=== PATIENT | male | born 1945 | race Caucasian/White ===

== ENCOUNTER 2020-11-23 16:10 | Inpatient (IN) | payer OTHER ==
[~2020-11-23] VITALS: Ht 172.7 cm; Wt 83.9 kg
[2020-11-23 16:10] VITALS: BP 128/78
--- NOTE | 2020-11-23 18:25 | Diagnostic Imaging Report ---
EXAM: CT Head Without Intravenous Contrast CLINICAL HISTORY: TRAUMA TECHNIQUE: Axial computed tomography images of the head/brain without intravenous contrast. CTDI is 53 mGy and DLP is 1045 mGy-cm. One or more of the following dose reduction techniques were used: automated exposure control, adjustment of the mA and/or kV according to patient size, use of iterative reconstruction technique. COMPARISON: No relevant prior studies available. FINDINGS: Brain: Unremarkable. No hemorrhage. No significant white matter disease. No edema. Ventricles: Unremarkable. No ventriculomegaly. Bones/joints: Unremarkable. No acute fracture. Soft tissues: Unremarkable. Sinuses: Unremarkable as visualized. No acute sinusitis. Mastoid air cells: Unremarkable as visualized. No mastoid effusion. IMPRESSION: No acute intracranial abnormality.
--- NOTE | 2020-11-23 18:26 | Diagnostic Imaging Report ---
EXAM: XR Right Ankle Complete, 3 or More Views CLINICAL HISTORY: TRAUMA TECHNIQUE: Frontal, lateral and oblique views of the right ankle. COMPARISON: No relevant prior studies available. FINDINGS: Bones/joints: Medial malleolar mildly displaced fracture. Intact ankle mortise. Plantar calcaneal enthesophyte. Osteopenia. No dislocation. Soft tissues: Substantial surrounding ankle edema. Other findings: Probable pes planus, although these images are not weightbearing. IMPRESSION: 1. Medial malleolar mildly displaced fracture. 2. Intact ankle mortise. 3. Probable pes planus, although these images are not weightbearing. 4. Plantar calcaneal enthesophyte.
--- NOTE | 2020-11-23 18:28 | Diagnostic Imaging Report ---
EXAM: XR Right Foot Complete, 3 or More Views CLINICAL HISTORY: TRAUMA TECHNIQUE: Frontal, lateral and oblique views of the right foot. COMPARISON: No relevant prior studies available. FINDINGS: Bones/joints: Medial malleolar mildly displaced fracture. Scattered TMT moderate osteoarthritis. Tiny plantar calcaneal enthesophyte. Osteopenia. No dislocation. Soft tissues: Severe dorsal foot soft tissue edema. No radiopaque foreign body. Other findings: Likely pes planus given nonweightbearing images. IMPRESSION: 1. Medial malleolar mildly displaced fracture. 2. Scattered TMT moderate osteoarthritis. 3. Severe dorsal foot soft tissue edema. 4. Tiny plantar calcaneal enthesophyte. 5. Likely pes planus given nonweightbearing images.
[2020-11-23] MEDS ORDERED: Morphine Sulfate 2mg/ml Inj(IV/IM USE ONLY) IVP ONE (19:00)
--- NOTE | 2020-11-23 19:20 | Emergency Room Report ---
History of Present Illness General Chief Complaint: Multiple Trauma/Fall Source: EMS (Morgan Montes) Present Illness HPI 74-year-old male with history of syncope and bipolar disorder currently in control here status post fall and injury right ankle. Patient was at [facility] [place] earlier and was about to be admitted today due to syncopal episode however patient signed AGAINST MEDICAL ADVICE. Patient has no recollection of sending his medical advice. Reports that he was about to get on the bus as he felt dizzy and fell and hurt his ankle. Obvious deformity of right ankle noted. No open fracture noted. Denies tingling or numbness. Patient is a poor historian due to uncontrolled bipolar disorder at this time. Patient agrees to stay in the hospital as reports" and he had surgery on my ankle today." Patient is neurovascularly intact. Head appears to be atraumatic. 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 DISABLED: No (Morgan Montes) Patient History Past Medical History: see triage record Past Surgical History: none Pertinent Family History: none Immunizations: UTD Reviewed Nursing Documentation: PMH: Agreed; PSxH: Agreed (Morgan Montes) Nursing Documentation-PMH Hx Hypertension: Yes (Morgan Montes) Review of Systems All Other Systems: negative except mentioned in HPI (Morgan Montes) Physical Exam Vital Signs Date Time Temp Pulse Resp B/P (MAP) Pulse Ox O2 Delivery O2 Flow Rate FiO2 11/23/20 16:10 100 17 Room Air 11/23/20 16:10 98.4 128/78 (95) 99 Sp02 EP Interpretation: reviewed, normal General Appearance: no apparent distress, alert, GCS 15, non-toxic Head: normocephalic, atraumatic Eyes: bilateral eye normal inspection, bilateral eye PERRL ENT: hearing grossly normal, normal pharynx, no angioedema, normal voice Neck: full range of motion, supple/symm/no masses Respiratory: chest non-tender, lungs clear, normal breath sounds, speaking full sentences Cardiovascular #1: regular rate, rhythm, no edema Cardiovascular #2: 2+ carotid (R), 2+ carotid (L), 2+ radial (R), 2+ radial ( L), 2+ dorsalis pedis (R), 2+ dorsalis pedis (L) Gastrointestinal: soft Rectal: deferred Musculoskeletal: back normal, no calf tenderness, pelvis stable, tender - Right medial malleolus with obvious deformity probable displaced fracture, swelling - Right ankle Neurologic: alert, motor strength/tone normal, oriented x3, sensory intact, responsive, speech normal Psychiatric: judgement/insight normal, memory normal, mood/affect normal, no suicidal/homicidal ideation Skin: no rash Lymphatic: no adenopathy (Morgan Montes) Procedures Splinting Splinting : Consent: Verbal Location: right ankle Hand-Made Type: plaster Splint: poserior short Pre-Proc Neuro Vasc Exam: normal Post-Proc Neuro Vasc Exam: normal Patient Tolerated: Well Complications: None (Morgan Montes) Medical Decision Making PA Attestation ALL Diagnosis and treatment plan reviewed and discussed with my supervising physician Dr. Mccoy (Morgan Monets) Diagnostic Impression: Primary Impression: Recurrent syncope Additional Impression: Displaced fracture of medial malleolus ER Course 74-year-old male with history of syncope and bipolar disorder currently in control here status post fall and injury right ankle. Patient was at [facility] [place] earlier and was about to be admitted today due to syncopal episode however patient signed AGAINST MEDICAL ADVICE. Patient has no recollection of sending his medical advice. Reports that he was about to get on the bus as he felt dizzy and fell and hurt his ankle. Obvious deformity of right ankle noted. No open fracture noted. Denies tingling or numbness. Patient is a poor historian due to uncontrolled bipolar disorder at this time. Patient agrees to stay in the hospital as reports" and he had surgery on my ankle today." Patient is neurovascularly intact. Head appears to be atraumatic. Ddx considered but are not limited to: Dizziness due to alcohol intoxication, dizziness unspecified, dizziness due to head trauma, dizziness secondary to cardiac reasons Vital signs: are WNL, pt. is afebrile H&PE are most consistent with: Recurrent syncope, displaced fracture right ankle ORDERS: Right ankle x-ray ER intervention: Morphine Labs were ordered earlier today for syncope patient was to be admitted have patient sign AGAINST MEDICAL ADVICE this morning. Patient was admitted with diagnosis of recurrent syncope, displaced fracture ankle to under supervision of : Darius pt stable at time of admission (Morgan Montes) ER Course I personally evaluated the patient and agree with the above assessment and plan. (Parish Mccoy M.D.) Other X-Ray Diagnostic Results Other X-Ray Diagnostic Results #1: X-Ray ordered: right foot # of Views/Limited Vs Complete: 3 View Indication: Pain EP Interpretation: Yes PA Xray: Interpretation reviewed, by supervising , and agrees with findings. Interpretation: other - displaced medial malleolus fracture Impression: Other - Right medial malleolus fracture displaced Electronically Signed by: Morgan BERMAN Scribe Text FINDINGS: Bones/joints: Medial malleolar mildlydisplaced fracture. Intact ankle mortise. Plantar calcaneal enthesophyte. Osteopenia. No dislocation. Soft tissues: Substantial surrounding ankle edema. Other findings: Probable pes planus, although these images are not weightbearing. IMPRESSION: 1. Medial malleolar mildlydisplaced fracture. 2. Intact ankle mortise. 3. Probable pes planus, although these images are not weightbearing. 4. Plantar calcaneal enthesophyte. Radiologist: Marc Garza MD Electronically Signed: 11/23/20 18:25 Ph Other X-Ray Diagnostic Results #2: X-Ray ordered: Right ankle # of Views/Limited Vs Complete: 3 View Indication: Pain EP Interpretation: Yes PA Xray: Interpretation reviewed, by supervising , and agrees with findings. Interpretation: other - Right medial malleolus fracture Impression: Other - Right medial malleolus fracture Electronically Signed by: Morgan BERMAN Scribe Text FINDINGS: Bones/joints: Medial malleolar mildlydisplaced fracture. Intact ankle mortise. Plantar calcaneal enthesophyte. Osteopenia. No dislocation. Soft tissues: Substantial surrounding ankle edema. Other findings: Probable pes planus, although these images are not weightbearing. IMPRESSION: 1. Medial malleolar mildlydisplaced fracture. 2. Intact ankle mortise. 3. Probable pes planus, although these images are not weightbearing. 4. Plantar calcaneal enthesophyte. Radiologist: Marc Garza MD Electronically Signed: 11/23/20 18:25 Ph (Morgan Montes) CT/MRI/US Diagnostic Results CT/MRI/US Diagnostic Results : Imaging Test Ordered: head ct no contrast Impression FINDINGS: Brain:Unremarkable. No hemorrhage. No significant white matter disease. No edema. Ventricles:Unremarkable. No ventriculomegaly. Bones/joints:Unremarkable. No acute fracture. Soft tissues:Unremarkable. Sinuses:Unremarkable as visualized. No acute sinusitis. Mastoid air cells:Unremarkable as visualized. No mastoid effusion. IMPRESSION: No acute intracranial abnormality (Morgan Montes) Last Vital Signs Date Time Temp Pulse Resp B/P (MAP) Pulse Ox O2 Delivery O2 Flow Rate FiO2 11/23/20 16:10 98.4 100 17 128/78 99 Room Air (Morgan Montes) Disposition: ADMITTED INPATIENT Condition: Stable Referrals: NOT CHOSEN IPA/,REFERRING (PCP) Morgan Montes Nov 23, 2020 19:20 Parish Mccoy M.D. Nov 24, 2020 13:25
[2020-11-24 04:00] VITALS: BP 128/71
[2020-11-24] MEDS ORDERED: HYDROcodone/Acetamin 5/325 tab ORAL PRN (06:45)
[2020-11-24 08:00] VITALS: BP 108/62
[2020-11-24 12:00] VITALS: BP 114/56
[2020-11-24 16:00] VITALS: BP 118/61
--- NOTE | 2020-11-24 17:04 | General Progress Note ---
Subjective Constitutional: Reports: weakness HEENT: Reports: no symptoms Cardiovascular: Reports: no symptoms Respiratory: Reports: no symptoms Gastrointestinal/Abdominal: Reports: no symptoms Genitourinary: Reports: no symptoms Neurologic/Psychiatric: Reports: pre-existing deficit Endocrine: Reports: no symptoms Hematologic/Lymphatic: Reports: no symptoms Allergies: Coded Allergies: No Known Allergies (Unverified , 11/22/20) Subjective restless, walked to br min pain Objective Last 24 Hour Vital Signs Date Time Temp Pulse Resp B/P (MAP) Pulse Ox O2 Delivery O2 Flow Rate FiO2 11/24/20 12:00 90 11/24/20 12:00 98.2 99 20 114/56 (75) 99 11/24/20 09:00 Room Air 11/24/20 08:00 97.9 92 18 108/62 (77) 100 11/24/20 08:00 90 11/24/20 04:00 98.2 96 20 128/71 (90) 100 11/24/20 04:00 94 11/24/20 02:30 98.4 90 20 134/87 99 Room Air 11/24/20 02:06 Room Air 11/24/20 01:56 92 11/23/20 21:08 98.4 Intake and Output 11/23/20 11/24/20 19:00 07:00 Intake Total 600 ml Balance 600 ml Intake Oral 600 ml Height (Feet): 5 Height (Inches): 8.00 Weight (Pounds): 185 Assessment/Plan Problem List: (1) Prolonged QT interval syndrome ICD Codes: I45.81 - Long QT syndrome SNOMED: 8872141 (2) HEATHER (acute kidney injury) ICD Codes: N17.9 - Acute kidney failure, unspecified SNOMED: 36094891, 4929049 (3) Dehydration ICD Codes: E86.0 - Dehydration SNOMED: 61470442 (4) Cirrhosis ICD Codes: K74.60 - Unspecified cirrhosis of liver SNOMED: 26990429 (5) Gait abnormality ICD Codes: R26.9 - Unspecified abnormalities of gait and mobility SNOMED: 18641759 (6) Bipolar 1 disorder ICD Codes: F31.9 - Bipolar disorder, unspecified SNOMED: 430388591 (7) Displaced fracture of medial malleolus ICD Codes: S82.53XA - Displaced fracture of medial malleolus of unspecified tibia, initial encounter for closed fracture SNOMED: 441058942, 745065688, 689448931 (8) Recurrent syncope ICD Codes: R55 - Syncope and collapse SNOMED: 254195722, 81769983, 627135062 Assessment/Plan: hydrate, ortho eval, psych eval Chaz Powell MD Nov 24, 2020 17:04
[2020-11-24] MEDS ORDERED: LORazepam Inj 2mg/ml 1ml IV PRN (17:15)
[2020-11-24] MEDS: Enoxaparin 40mg Inj SUBQ SCH (18:00)
[2020-11-24] MEDS: Thiamine 100mg tab ORAL SCH (18:18)
[2020-11-24 20:00] VITALS: BP 121/64
[2020-11-25] VITALS (7 sets, daily range): BP systolic 111–148; BP diastolic 61–96
[2020-11-25] MEDS: Thiamine 100mg tab ORAL SCH (08:40)
[2020-11-25] MEDS: Enoxaparin 40mg Inj SUBQ SCH (08:43)
--- NOTE | 2020-11-25 17:07 | General Progress Note ---
Subjective Constitutional: Reports: weakness HEENT: Reports: no symptoms Cardiovascular: Reports: no symptoms Respiratory: Reports: no symptoms Gastrointestinal/Abdominal: Reports: no symptoms Genitourinary: Reports: no symptoms Neurologic/Psychiatric: Reports: pre-existing deficit Endocrine: Reports: no symptoms Allergies: Coded Allergies: No Known Allergies (Unverified , 11/22/20) Subjective restless, walked to br min pain Objective Last 24 Hour Vital Signs Date Time Temp Pulse Resp B/P (MAP) Pulse Ox O2 Delivery O2 Flow Rate FiO2 11/25/20 12:00 98.8 98 20 133/73 (93) 100 11/25/20 09:00 Room Air 11/25/20 08:00 97.7 95 20 111/61 (78) 100 11/25/20 04:00 97.6 93 18 118/76 (90) 100 11/25/20 00:00 97.9 81 18 140/71 (94) 98 11/24/20 21:00 Room Air 11/24/20 20:00 97.3 89 18 121/64 (83) 97 Intake and Output 0 11/24/20 11/25/20 19:00 07:00 Intake Total 360 ml 1470 ml Output Total 700 ml 2050 ml Balance -340 ml -580 ml Intake Oral 360 ml 1470 ml Output Urine Total 700 ml 2050 ml # Voids 5 # Bowel Movements 1 Height (Feet): 5 Height (Inches): 8.00 Weight (Pounds): 185 General Appearance: no apparent distress, alert EENT: normal ENT inspection Neck: normal alignment Cardiovascular: normal rate, regular rhythm Respiratory/Chest: lungs clear Abdomen: soft Edema: moderate edema 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 Assessment/Plan Problem List: (1) Prolonged QT interval syndrome ICD Codes: I45.81 - Long QT syndrome SNOMED: 2957386 (2) HEATHER (acute kidney injury) ICD Codes: N17.9 - Acute kidney failure, unspecified SNOMED: 38718269, 5223947 (3) Dehydration ICD Codes: E86.0 - Dehydration SNOMED: 77333166 (4) Cirrhosis ICD Codes: K74.60 - Unspecified cirrhosis of liver SNOMED: 88037473 (5) Gait abnormality ICD Codes: R26.9 - Unspecified abnormalities of gait and mobility SNOMED: 91566230 (6) Bipolar 1 disorder ICD Codes: F31.9 - Bipolar disorder, unspecified SNOMED: 065837519 (7) Displaced fracture of medial malleolus ICD Codes: S82.53XA - Displaced fracture of medial malleolus of unspecified tibia, initial encounter for closed fracture SNOMED: 902301438, 165870120, 541914862 (8) Recurrent syncope ICD Codes: R55 - Syncope and collapse SNOMED: 014426003, 44076999, 540943803 Assessment/Plan: hydrate, ortho eval, psych eval, mobilize, placement Chaz Powell MD Nov 25, 2020 17:07
[2020-11-25] MEDS: QUEtiapine 200mg tab ORAL SCH (21:27)
[2020-11-26 03:52] VITALS: BP 125/67
[2020-11-26 08:00] VITALS: BP 143/67
[2020-11-26] MEDS: Thiamine 100mg tab ORAL SCH (08:03)
[2020-11-26] MEDS: QUEtiapine 200mg tab ORAL SCH ×2 (08:03→20:33)
[2020-11-26] MEDS: Enoxaparin 40mg Inj SUBQ SCH (08:08)
--- NOTE | 2020-11-26 09:41 | Consultation ---
History of Present Illness General Date patient seen: Nov 26, 2020 Time patient seen: 09:35 Chief Complaint: Multiple Trauma/Fall Reason for Consultation: right ankle fracture Present Illness HPI 74 year old with psychiatric history who slipped and fell. Radiographs showed a non-displaced right ankle fracture with an intact mortise. He was admitted for syncopal work up. Allergies: Coded Allergies: No Known Allergies (Unverified , 11/22/20) Patient History Limited by: other - Mild confustion regarding incident Healthcare decision maker Resuscitation status Advanced Directive on File On exam, right foot pes planus. Xrays show non-displaced right medial malleolus fracture with an intact and symmetric mortise. Patient History Narrative I recommend non-weight bearing for 6 weeks in protective splint or boot. No operative intervention is warranted at this time. Follow up in office in 10 days for x-rays to verify no fracture migration that may necessitate operative intervention. Thank you for the opportunity to consult. Physical Exam Last 24 Hour Vital Signs Date Time Temp Pulse Resp B/P (MAP) Pulse Ox O2 Delivery O2 Flow Rate FiO2 11/26/20 09:00 Room Air 11/26/20 08:00 97.5 105 18 143/67 (92) 99 11/26/20 03:52 97.3 98 18 125/67 (86) 99 11/25/20 23:37 98.4 99 18 143/93 (110) 99 11/25/20 20:28 Room Air 11/25/20 20:00 98.6 100 18 148/96 (113) 98 11/25/20 16:00 98.2 98 18 134/66 (88) 98 11/25/20 12:00 98.8 98 20 133/73 (93) 100 Intake and Output 11/25/20 11/26/20 19:00 07:00 Intake Total 1200 ml 1250 ml Output Total 1800 ml 1000 ml Balance -600 ml 250 ml Intake Oral 1200 ml 1250 ml Output Urine Total 1800 ml 1000 ml # Voids 5 3 Height (Feet): 5 Height (Inches): 8.00 Weight (Pounds): 185 Medications Current Medications Medications (Trade) Dose Ordered Sig/Norma Route PRN Reason Start Time Stop Time Status Last Admin Dose Admin Acetaminophen/ Hydrocodone Bitart ([place] 5/325) 1 tab Q4H PRN ORAL Moderate Pain (Pain Scale 4-6) 11/24/20 06:45 12/01/20 06:44 Enoxaparin Sodium (Lovenox) 40 mg DAILY SUBQ 11/24/20 18:00 02/22/21 17:59 Lorazepam (Ativan 2mg/ml 1ml) 1 mg Q4H PRN IV For Anxiety 11/24/20 17:15 12/01/20 17:14 Multivitamins (Multivitamins) 1 tab DAILY ORAL 11/24/20 18:00 12/24/20 17:59 11/26/20 08:03 Quetiapine Fumarate (SEROqueL) 300 mg Q12HR ORAL 11/25/20 21:00 01/09/21 20:59 11/26/20 08:03 Sodium Chloride 1,000 ml @ 50 mls/hr Q20H IV 11/24/20 17:15 12/24/20 17:14 Thiamine HCl (Vitamin B1) 100 mg DAILY ORAL 11/24/20 18:00 12/24/20 17:59 11/26/20 08:03 Mick Salmon MD Nov 26, 2020 09:41
[2020-11-26 12:00] VITALS: BP 145/78
--- NOTE | 2020-11-26 13:37 | General Progress Note ---
Subjective Constitutional: Reports: weakness HEENT: Reports: no symptoms Cardiovascular: Reports: no symptoms Respiratory: Reports: no symptoms Gastrointestinal/Abdominal: Reports: no symptoms Genitourinary: Reports: no symptoms Neurologic/Psychiatric: Reports: pre-existing deficit Endocrine: Reports: no symptoms Hematologic/Lymphatic: Reports: no symptoms Allergies: Coded Allergies: No Known Allergies (Unverified , 11/22/20) Subjective restless, declined labs and ekg min pain Objective Last 24 Hour Vital Signs Date Time Temp Pulse Resp B/P (MAP) Pulse Ox O2 Delivery O2 Flow Rate FiO2 11/26/20 12:00 97.3 92 18 145/78 (100) 98 11/26/20 09:00 Room Air 11/26/20 08:00 97.5 105 18 143/67 (92) 99 11/26/20 03:52 97.3 98 18 125/67 (86) 99 11/25/20 23:37 98.4 99 18 143/93 (110) 99 11/25/20 20:28 Room Air 11/25/20 20:00 98.6 100 18 148/96 (113) 98 11/25/20 16:00 98.2 98 18 134/66 (88) 98 Intake and Output 11/25/20 11/26/20 19:00 07:00 Intake Total 1200 ml 1250 ml Output Total 1800 ml 1000 ml Balance -600 ml 250 ml Intake Oral 1200 ml 1250 ml Output Urine Total 1800 ml 1000 ml # Voids 5 3 Height (Feet): 5 Height (Inches): 8.00 Weight (Pounds): 185 General Appearance: no apparent distress, alert EENT: normal ENT inspection Neck: normal alignment Cardiovascular: regular rhythm Respiratory/Chest: lungs clear Abdomen: non tender Edema: moderate edema 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 Skin: other - scabs on feet Assessment/Plan Problem List: (1) Prolonged QT interval syndrome ICD Codes: I45.81 - Long QT syndrome SNOMED: 1624736 (2) HEATHER (acute kidney injury) ICD Codes: N17.9 - Acute kidney failure, unspecified SNOMED: 55024187, 8758853 (3) Dehydration ICD Codes: E86.0 - Dehydration SNOMED: 66402196 (4) Cirrhosis ICD Codes: K74.60 - Unspecified cirrhosis of liver SNOMED: 44922404 (5) Gait abnormality ICD Codes: R26.9 - Unspecified abnormalities of gait and mobility SNOMED: 20816253 (6) Bipolar 1 disorder ICD Codes: F31.9 - Bipolar disorder, unspecified SNOMED: 397411631 (7) Displaced fracture of medial malleolus ICD Codes: S82.53XA - Displaced fracture of medial malleolus of unspecified tibia, initial encounter for closed fracture SNOMED: 657943028, 623324976, 127805637 (8) Recurrent syncope ICD Codes: R55 - Syncope and collapse SNOMED: 399189582, 37509342, 172755497 Assessment/Plan: hydrate orally , ortho eval, psych eval, mobilize, placement Chaz Powell MD Nov 26, 2020 13:37
[2020-11-26 16:00] VITALS: BP 120/68
[2020-11-26 19:47] VITALS: BP_SYST 118; BP_SYST 144; BP_DIAS 67; BP_DIAS 73
[2020-11-27 04:00] VITALS: BP 130/84
[2020-11-27 08:00] VITALS: BP 138/74
[2020-11-27] MEDS: Thiamine 100mg tab ORAL SCH (08:56)
[2020-11-27] MEDS: QUEtiapine 200mg tab ORAL SCH ×2 (08:56→20:09)
[2020-11-27] MEDS: Enoxaparin 40mg Inj SUBQ SCH (09:00)
[2020-11-27 12:00] VITALS: BP 105/79
--- NOTE | 2020-11-27 14:56 | General Progress Note ---
Subjective Constitutional: Reports: weakness HEENT: Reports: no symptoms Cardiovascular: Reports: no symptoms Respiratory: Reports: no symptoms Gastrointestinal/Abdominal: Reports: no symptoms Genitourinary: Reports: no symptoms Neurologic/Psychiatric: Reports: pre-existing deficit Endocrine: Reports: no symptoms Allergies: Coded Allergies: No Known Allergies (Unverified , 11/22/20) Subjective restless, declined labs and ekg min pain Objective Last 24 Hour Vital Signs Date Time Temp Pulse Resp B/P (MAP) Pulse Ox O2 Delivery O2 Flow Rate FiO2 11/27/20 12:00 98.0 103 18 105/79 (88) 11/27/20 09:00 Room Air 11/27/20 08:00 98.8 98 16 138/74 (95) 98 11/27/20 04:00 97.4 102 20 130/84 (99) 99 11/26/20 20:08 Room Air 11/26/20 19:47 98.2 88 20 118/67 (84) 97 11/26/20 16:00 97.4 91 18 120/68 (85) 99 Intake and Output 11/26/20 11/27/20 19:00 07:00 Intake Total 1000 ml 1200 ml Output Total 1300 ml 1000 ml Balance -300 ml 200 ml Intake Oral 1000 ml 1200 ml Output Urine Total 1300 ml 1000 ml # Voids 4 Height (Feet): 5 Height (Inches): 8.00 Weight (Pounds): 185 General Appearance: no apparent distress, alert EENT: normal ENT inspection Neck: supple Cardiovascular: normal rate Respiratory/Chest: lungs clear Abdomen: non tender, soft Edema: mild edema, moderate edema 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, disoriented Assessment/Plan Problem List: (1) Prolonged QT interval syndrome ICD Codes: I45.81 - Long QT syndrome SNOMED: 0969083 (2) HEATHER (acute kidney injury) ICD Codes: N17.9 - Acute kidney failure, unspecified SNOMED: 89530447, 5032932 (3) Dehydration ICD Codes: E86.0 - Dehydration SNOMED: 07288546 (4) Cirrhosis ICD Codes: K74.60 - Unspecified cirrhosis of liver SNOMED: 69263919 (5) Gait abnormality ICD Codes: R26.9 - Unspecified abnormalities of gait and mobility SNOMED: 78500625 (6) Bipolar 1 disorder ICD Codes: F31.9 - Bipolar disorder, unspecified SNOMED: 385619156 (7) Displaced fracture of medial malleolus ICD Codes: S82.53XA - Displaced fracture of medial malleolus of unspecified tibia, initial encounter for closed fracture SNOMED: 038200704, 458302987, 162484700 (8) Recurrent syncope ICD Codes: R55 - Syncope and collapse SNOMED: 117239910, 62775322, 284543520 Assessment/Plan: hydrate orally , ortho eval, psych eval, mobilize, placement, d/w CM Chaz Powell MD Nov 27, 2020 14:56
[2020-11-27 16:00] VITALS: BP 138/89
--- NOTE | 2020-11-27 19:24 | Psychiatry Consultation ---
Psychiatry Consultation Psychiatry Consultation Chief Complaint: Multiple Trauma/Fall History of Present Illness: 75-year-old male with a history of schizophrenia. He has a history of anxiety, depression as well. He slipped and fell, was brought in due to nondisplacement right ankle fracture. Patient stated that he is paranoid and presents with anxiety, was able to answer the questions. He has memory impairment, however, is pleasant and calm. PAST PSYCHIATRIC HISTORY: Has a history of schizophrenia, depression, anxiety. PAST MEDICAL HISTORY: Significant for hypertension, hyperlipidemia. ALLERGIES: No known drug allergies. SUBSTANCE ABUSE HISTORY: He is denying any illicit drug use or alcohol. MENTAL STATUS EXAMINATION: Patient is alert, oriented times self, place, situation. Mood is anxious. Affect is blunted, congruent with mood. Thought process is concrete. Thought content, no suicidal or homicidal ideation. Cognition is intact. Insight and judgment is fair. ASSESSMENT: [place] I Schizophrenia. Anxiety disorder. [place] II Deferred. [place] III As above. [place] IV Low. [place] V 50. PLAN: 1. We will continue the Seroquel. 2. Lexapro 10 mg in the morning. 3. Continue to follow and readjust the medications. Allergies: Coded Allergies: No Known Allergies (Unverified , 11/22/20) Objective Data Height (Feet): 5 Height (Inches): 8.00 Weight (Pounds): 185 Gonzalo Cabello MD Nov 27, 2020 19:24
[2020-11-27 20:00] VITALS: BP 134/67
--- NOTE | 2020-11-27 22:30 | Consultation ---
DATE OF CONSULTATION: 11/27/2020 CONSULTING PHYSICIAN: Gonzalo Cabello MD HISTORY OF PRESENT ILLNESS: This is a 75-year-old male with a history of schizophrenia. He has a history of anxiety, depression as well. He slipped and fell, was brought in due to nondisplacement right ankle fracture. Patient stated that he is paranoid and presents with anxiety, was able to answer the questions. He has memory impairment, however, is pleasant and calm. PAST PSYCHIATRIC HISTORY: Has a history of schizophrenia, depression, anxiety. PAST MEDICAL HISTORY: Significant for hypertension, hyperlipidemia. ALLERGIES: No known drug allergies. SUBSTANCE ABUSE HISTORY: He is denying any illicit drug use or alcohol. MENTAL STATUS EXAMINATION: Patient is alert, oriented times self, place, situation. Mood is anxious. Affect is blunted, congruent with mood. Thought process is concrete. Thought content, no suicidal or homicidal ideation. Cognition is intact. Insight and judgment is fair. ASSESSMENT: [place] I Schizophrenia. Anxiety disorder. [place] II Deferred. [place] III As above. [place] IV Low. [place] V 50. PLAN: 1. We will continue the Seroquel. 2. Lexapro 10 mg in the morning. 3. Continue to follow and readjust the medications. Gonzalo Cabello M.D. DR: TIARA JOB#: [id number] CC:
[2020-11-28] VITALS: BP 92/56
[2020-11-28 08:00] VITALS: BP 123/71
[2020-11-28] MEDS: Thiamine 100mg tab ORAL SCH (08:43)
[2020-11-28] MEDS: QUEtiapine 200mg tab ORAL SCH ×2 (08:43→20:39)
[2020-11-28] MEDS: Enoxaparin 40mg Inj SUBQ SCH ×2 (08:52→08:54)
[2020-11-28 12:00] VITALS: BP 107/60
[2020-11-28 16:00] VITALS: BP 109/68
--- NOTE | 2020-11-28 19:16 | General Progress Note ---
Subjective Constitutional: Reports: weakness HEENT: Reports: no symptoms Cardiovascular: Reports: no symptoms Respiratory: Reports: no symptoms Gastrointestinal/Abdominal: Reports: no symptoms Genitourinary: Reports: no symptoms Neurologic/Psychiatric: Reports: pre-existing deficit Endocrine: Reports: no symptoms Allergies: Coded Allergies: No Known Allergies (Unverified , 11/22/20) Subjective restless, declined labs and ekg min pain Objective Last 24 Hour Vital Signs Date Time Temp Pulse Resp B/P (MAP) Pulse Ox O2 Delivery O2 Flow Rate FiO2 11/28/20 16:00 98.1 92 18 109/68 (82) 98 11/28/20 12:00 98.0 101 18 107/60 (76) 99 11/28/20 09:00 Room Air 11/28/20 08:00 97.2 96 18 123/71 (88) 99 11/28/20 00:00 98.0 85 18 92/56 (68) 95 11/27/20 20:13 Room Air 11/27/20 20:00 98.2 84 16 134/67 (89) 98 Intake and Output 11/27/20 11/28/20 19:00 07:00 Intake Total 1500 ml Output Total 1200 ml 1000 ml Balance -1200 ml 500 ml Intake Oral 1500 ml Output Urine Total 1200 ml 1000 ml # Voids 3 Height (Feet): 5 Height (Inches): 8.00 Weight (Pounds): 185 General Appearance: no apparent distress, alert EENT: normal ENT inspection Neck: normal alignment Cardiovascular: regular rhythm Respiratory/Chest: lungs clear Abdomen: non tender, soft Edema: 2+ Leg (L), 2+ Leg (R) 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 II-XII grossly normal Skin: other - scabs on feet Assessment/Plan Problem List: (1) Prolonged QT interval syndrome ICD Codes: I45.81 - Long QT syndrome SNOMED: 1549745 (2) HEATHER (acute kidney injury) ICD Codes: N17.9 - Acute kidney failure, unspecified SNOMED: 04488140, 4724637 (3) Dehydration ICD Codes: E86.0 - Dehydration SNOMED: 79422478 (4) Cirrhosis ICD Codes: K74.60 - Unspecified cirrhosis of liver SNOMED: 27867600 (5) Gait abnormality ICD Codes: R26.9 - Unspecified abnormalities of gait and mobility SNOMED: 04994750 (6) Bipolar 1 disorder ICD Codes: F31.9 - Bipolar disorder, unspecified SNOMED: 588392886 (7) Displaced fracture of medial malleolus ICD Codes: S82.53XA - Displaced fracture of medial malleolus of unspecified tibia, initial encounter for closed fracture SNOMED: 763551511, 007989645, 077721996 (8) Recurrent syncope ICD Codes: R55 - Syncope and collapse SNOMED: 057233334, 73139701, 333725227 Assessment/Plan: hydrate orally , ortho eval, psych eval, appreciated, await cam boot, mobilize, placement, d/w Chaz Kelley MD Nov 28, 2020 19:16
--- NOTE | 2020-11-28 19:57 | Psychiatric Progress Note ---
Psychiatry Progress Note Psychiatry Progress Note Medications Current Medications Medications (Trade) Dose Ordered Sig/Norma Route PRN Reason Start Time Stop Time Status Last Admin Dose Admin Acetaminophen/ Hydrocodone Bitart ([place] 5/325) 1 tab Q4H PRN ORAL Moderate Pain (Pain Scale 4-6) 11/24/20 06:45 12/01/20 06:44 Enoxaparin Sodium (Lovenox) 40 mg DAILY SUBQ 11/24/20 18:00 02/22/21 17:59 Escitalopram Oxalate (Lexapro) 10 mg DAILY ORAL 11/28/20 09:00 12/28/20 08:59 11/28/20 08:43 Lorazepam (Ativan 2mg/ml 1ml) 1 mg Q4H PRN IV For Anxiety 11/24/20 17:15 12/01/20 17:14 Multivitamins (Multivitamins) 1 tab DAILY ORAL 11/24/20 18:00 12/24/20 17:59 11/28/20 08:43 Quetiapine Fumarate (SEROqueL) 300 mg Q12HR ORAL 11/25/20 21:00 01/09/21 20:59 11/28/20 08:43 Sodium Chloride 1,000 ml @ 50 mls/hr Q20H IV 11/24/20 17:15 12/24/20 17:14 Thiamine HCl (Vitamin B1) 100 mg DAILY ORAL 11/24/20 18:00 12/24/20 17:59 11/28/20 08:43 Neurological/Psychiatric: Reports: anxiety, depressed, emotional problems, pre- existing deficit Allergies: Coded Allergies: No Known Allergies (Unverified , 11/22/20) Objective Data Height (Feet): 5 Height (Inches): 8.00 Weight (Pounds): 185 General Appearance: no apparent distress, alert Additional Comments: MENTAL STATUS EXAMINATION: Patient is alert, oriented times self, place, situation. Mood is anxious. Affect is blunted, congruent with mood. Thought process is concrete. Thought content, no suicidal or homicidal ideation. Cognition is intact. Insight and judgment is fair. Assessment/Plan Assessment/Plan: ASSESSMENT: [place] I Schizophrenia. Anxiety disorder. [place] II Deferred. [place] III As above. [place] IV Low. [place] V 50. PLAN: 1. We will continue the Seroquel. 2. Lexapro 10 mg in the morning. 3. Continue to follow and readjust the medications. Gonzalo Cabello MD Nov 28, 2020 19:57
[2020-11-28 20:29] VITALS: BP 113/75
[2020-11-29 08:00] VITALS: BP 114/63
[2020-11-29] MEDS: Thiamine 100mg tab ORAL SCH (08:52)
[2020-11-29] MEDS: QUEtiapine 200mg tab ORAL SCH ×2 (08:53→20:38)
[2020-11-29] MEDS: Enoxaparin 40mg Inj SUBQ SCH (09:00)
[2020-11-29 12:00] VITALS: BP 120/65
[2020-11-29 16:00] VITALS: BP 135/92
[2020-11-29] MEDS ORDERED: VITAMIN B-1100 M2 ORAL (16:33)
[2020-11-29] MEDS ORDERED: SEROQUEL200 MG ORAL (16:33)
[2020-11-29] MEDS ORDERED: LEXAPRO10 MG ORAL (16:33)
--- NOTE | 2020-11-29 19:31 | Psychiatric Progress Note ---
Psychiatry Progress Note Psychiatry Progress Note Medications Current Medications Medications (Trade) Dose Ordered Sig/Norma Route PRN Reason Start Time Stop Time Status Last Admin Dose Admin Acetaminophen/ Hydrocodone Bitart ([place] 5/325) 1 tab Q4H PRN ORAL Moderate Pain (Pain Scale 4-6) 11/24/20 06:45 12/01/20 06:44 Enoxaparin Sodium (Lovenox) 40 mg DAILY SUBQ 11/24/20 18:00 02/22/21 17:59 Escitalopram Oxalate (Lexapro) 10 mg DAILY ORAL 11/28/20 09:00 12/28/20 08:59 11/29/20 08:52 Lorazepam (Ativan 2mg/ml 1ml) 1 mg Q4H PRN IV For Anxiety 11/24/20 17:15 12/01/20 17:14 Multivitamins (Multivitamins) 1 tab DAILY ORAL 11/24/20 18:00 12/24/20 17:59 11/29/20 08:52 Quetiapine Fumarate (SEROqueL) 300 mg Q12HR ORAL 11/25/20 21:00 01/09/21 20:59 11/29/20 08:53 Sodium Chloride 1,000 ml @ 50 mls/hr Q20H IV 11/24/20 17:15 12/24/20 17:14 Thiamine HCl (Vitamin B1) 100 mg DAILY ORAL 11/24/20 18:00 12/24/20 17:59 11/29/20 08:52 Neurological/Psychiatric: Reports: anxiety, depressed, emotional problems, pre- existing deficit Allergies: Coded Allergies: No Known Allergies (Unverified , 11/22/20) Objective Data Height (Feet): 5 Height (Inches): 8.00 Weight (Pounds): 185 General Appearance: WD/WN, no apparent distress, alert, alert oriented x3 Additional Comments: MENTAL STATUS EXAMINATION: Patient is alert, oriented times self, place, situation. Mood is anxious. Affect is blunted, congruent with mood. Thought process is concrete. Thought content, no suicidal or homicidal ideation. Cognition is intact. Insight and judgment is fair. Assessment/Plan [place] I: ASSESSMENT: [place] I Schizophrenia. Anxiety disorder. [place] II Deferred. [place] III As above. [place] IV Low. [place] V 50. PLAN: 1. We will continue the Seroquel. 2. Lexapro 10 mg in the morning. 3. Continue to follow and readjust the medications. Status Narrative ASSESSMENT: [place] I Schizophrenia. Anxiety disorder. [place] II Deferred. [place] III As above. [place] IV Low. [place] V 50. PLAN: 1. We will continue the Seroquel. 2. Lexapro 10 mg in the morning. 3. Continue to follow and readjust the medications. Assessment/Plan: ASSESSMENT: [place] I Schizophrenia. Anxiety disorder. [place] II Deferred. [place] III As above. [place] IV Low. [place] V 50. PLAN: 1. We will continue the Seroquel. 2. Lexapro 10 mg in the morning. 3. Continue to follow and readjust the medications. Gonzalo Cabello MD Nov 29, 2020 19:31
[2020-11-29 20:00] VITALS: BP 131/79
--- NOTE | 2020-11-29 20:07 | General Progress Note ---
Subjective Constitutional: Reports: weakness HEENT: Reports: no symptoms Cardiovascular: Reports: no symptoms Respiratory: Reports: no symptoms Gastrointestinal/Abdominal: Reports: no symptoms Genitourinary: Reports: no symptoms Neurologic/Psychiatric: Reports: pre-existing deficit Hematologic/Lymphatic: Reports: no symptoms Allergies: Coded Allergies: No Known Allergies (Unverified , 11/22/20) Subjective delusional declined labs and ekg min pain, walked with cam boot Objective Last 24 Hour Vital Signs Date Time Temp Pulse Resp B/P (MAP) Pulse Ox O2 Delivery O2 Flow Rate FiO2 11/29/20 16:00 99.1 18 135/92 (106) 98 11/29/20 12:00 97.7 97 18 120/65 (83) 96 11/29/20 09:00 Room Air 11/29/20 08:00 97.5 97 18 114/63 (80) 98 11/28/20 20:29 97.8 89 18 113/75 (88) 100 Intake and Output 11/28/20 11/29/20 19:00 07:00 Intake Total 900 ml 840 ml Output Total 600 ml Balance 300 ml 840 ml Intake Oral 900 ml 840 ml Output Urine Total 600 ml # Voids 3 # Bowel Movements 1 Height (Feet): 5 Height (Inches): 8.00 Weight (Pounds): 185 General Appearance: no apparent distress, obese EENT: normal ENT inspection Neck: normal alignment Cardiovascular: normal rate, regular rhythm Respiratory/Chest: lungs clear Abdomen: non tender Edema: 2+ Leg (L), 2+ Leg (R) 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 grossly normal Assessment/Plan Problem List: (1) Prolonged QT interval syndrome ICD Codes: I45.81 - Long QT syndrome SNOMED: 5282920 (2) HEATHER (acute kidney injury) ICD Codes: N17.9 - Acute kidney failure, unspecified SNOMED: 99557265, 7113867 (3) Dehydration ICD Codes: E86.0 - Dehydration SNOMED: 96154890 (4) Cirrhosis ICD Codes: K74.60 - Unspecified cirrhosis of liver SNOMED: 18011284 (5) Gait abnormality ICD Codes: R26.9 - Unspecified abnormalities of gait and mobility SNOMED: 33276239 (6) Bipolar 1 disorder ICD Codes: F31.9 - Bipolar disorder, unspecified SNOMED: 716741500 (7) Displaced fracture of medial malleolus ICD Codes: S82.53XA - Displaced fracture of medial malleolus of unspecified tibia, initial encounter for closed fracture SNOMED: 031794290, 199147681, 712487356 (8) Recurrent syncope ICD Codes: R55 - Syncope and collapse SNOMED: 759998722, 90077437, 742459337 Assessment/Plan: hydrate orally , ortho eval, psych eval, appreciated, cam boot, mobilize,safe placement, d/w Chaz Kelley MD Nov 29, 2020 20:07
[2020-11-30] MEDS: Enoxaparin 40mg Inj SUBQ SCH (09:00)
[2020-11-30] MEDS: QUEtiapine 200mg tab ORAL SCH ×2 (09:09→20:07)
[2020-11-30] MEDS: Thiamine 100mg tab ORAL SCH (09:10)
[2020-11-30 12:00] VITALS: BP 118/70
[2020-11-30 16:00] VITALS: BP 129/74
--- NOTE | 2020-11-30 23:30 | Discharge Summary ---
DATE OF ADMISSION: 11/23/2020 DATE OF DISCHARGE: 11/30/2020 PERTINENT HISTORY: The patient presented with confusion, falls, dehydration. He was in the hospital a short time, left AMA, and came back within 24 hours. Apparently, he had a syncopal episode prior to coming in or a near syncope with dizziness. After he came back, he was found to have a right ankle deformity and a fracture. PERTINENT PHYSICAL FINDINGS: LUNGS: Clear. HEART: Regular rhythm. ABDOMEN: Obese and soft. EXTREMITIES: 1+ edema. He has pain in the right ankle. There are scars and scabs on the feet. COURSE IN THE HOSPITAL: The patient had imaging with a medial malleolus fracture, mildly displaced, in the right ankle. He has a history of schizophrenia, mild prolonged QT syndrome, and unsteady gait with falls. He was seen by Dr. Salmon in orthopedic consultation and Dr. Cabello in psychiatric consultation and psychotropic medicines were resumed. He did not cooperate for further lab testing or EKG. cloth printing utility worker was involved with discharge planning. He apparently was homeless. He was alert, somewhat delusional, in no distress at the time of discharge, and able to walk short distances with the CAM Boot, and he was discharged in stable condition. FINAL DIAGNOSES: 1. Dehydration, improved. 2. Schizophrenia. 3. Prolonged QT syndrome. 4. Right ankle malleolar fracture. 5. Gait disorder. 6. Cirrhosis. 7. Peripheral edema secondary to cirrhosis. DISCHARGE DISPOSITION: He was given prescriptions for thiamine 100 mg daily, Seroquel 300 mg b.i.d., and Lexapro 10 mg daily. Instructed followup with physician of his choice. He declined placement in a facility. Chaz Powell M.D. DR: LYNETTE JOB#: [id number] CC:
== END 2020-11-30 20:35 | disposition other institution (70) | DRG 309 ==
LOC: EDBD 16:10 → EMR 17:37 → 2E 19:53 → EDBEDREQ 22:06 → 2E 11-24 05:51 → 3E 11-25 10:06
PROC: 2W3QX1Z Immobilization of Right Lower Leg using Splint (ICD-10-PCS; principal; 2020-11-23)
DX: I45.81 Long QT syndrome (principal); N17.9 Acute kidney failure, unspecified; R55 Syncope and collapse; E86.0 Dehydration; K74.60 Unspecified cirrhosis of liver; R26.81 Unsteadiness on feet; F20.9 Schizophrenia, unspecified; S82.51XA Displaced fracture of medial malleolus of right tibia, initial encounter for closed fracture; W01.0XXA Fall on same level from slipping, tripping and stumbling without subsequent striking against object, initial encounter; F41.9 Anxiety disorder, unspecified; F31.9 Bipolar disorder, unspecified
CPT/HCPCS: 29515; 70450; 96374; 99285